=== PATIENT | male | born 1960 | race Caucasian/White ===

== ENCOUNTER → 2018-07-05 | Outpatient (CLI) | payer OTHER | LOC: GMAM 10:18 | PROVIDERS: ATTEND Family Medicine | DX: Z12.5 Encounter for screening for malignant neoplasm of prostate (principal) ==

== ENCOUNTER 2018-08-16 05:27 | Day surgery (SDC) | payer OTHER ==
[2018-08-16] MEDS ORDERED: LACTATED RINGERS 1,000 ML ONE (06:40)
[2018-08-16] MEDS ORDERED: PROPOFOL 200 MG/20 ML VIAL IV ONE (07:00)
[2018-08-16] MEDS ORDERED: LIDOCAINE 1% 10 ML VIAL INJ ONE (07:00)
[2018-08-16] MEDS ORDERED: MIDAZOLAM INJ 2 MG/2 ML VIAL ONE (07:35)
[2018-08-16] MEDS ORDERED: fentaNYL CITRATE INJ 50 MCG/ML AMP ONE (07:35)
--- NOTE | 2018-08-16 08:39 | OP ---
DATE OF PROCEDURE: 08/16/18 PREOPERATIVE DIAGNOSIS; 1. Age greater than 50 with no previous colonoscopy and desire for screening colonoscopy. POSTOPERATIVE DIAGNOSIS: 1. Polypectomy: Rectal polyp, 4 mm in size, removed with straight forceps biopsy. 2. Occasional sigmoid diverticula. PROCEDURE: 1. Colonoscopy with polypectomy. SURGEON: Sandor Mcgrath MD ANESTHESIA: Per Aung Flores CRNA. COMPLICATIONS: None apparent. ESTIMATED BLOOD LOSS: Less than 10 mL. TECHNIQUE: The patient was brought to the GI lab and laid in the left lateral decubitus position. Digital rectal exam was performed and found to be normal. The prostate was normal in size. Rectal tone was normal. The colonoscope was advanced gradually into the rectum and through to the cecum. The cecum was well visualized. The ileocecal valve was briefly cannulated. No polyps or masses were noted. The scope was withdrawn back through the ascending colon and into the transverse colon, which also appeared clear, back through to the descending colon and into the sigmoid colon, all of which appeared clear except for occasional diverticula in the sigmoid colon. The scope was withdrawn into the rectum where a 4 mm smooth hyperplastic appearing polyp was noted. This was removed with the straight forceps biopsy and felt to be adequately resected. Good hemostasis was noted. The scope was then retroflexed. The pectinate line was visualized and appeared normal. No other masses or polyps were noted. The scope was straightened and withdrawn slowly. The patient tolerated the procedure well. He will be discharged home when cleared from Anesthesia standpoint. DISPOSITION: The patient will be discharged when cleared from Anesthesia standpoint. Assuming that the polyp is a hyperplastic polyp, I recommend repeat colonoscopy in 10 years. If the polyp is adenomatous, we will recommend repeating colonoscopy in 5 years. #[id number];#[id number] [facility]
[2018-08-16 09:25] VITALS: BP 146/105; TEMP 96.9; O2SAT 98
== END 2018-08-16 09:05 | disposition home or self-care (01) ==
LOC: AMB 05:27
PROVIDERS: ATTEND Family Medicine
DX: Z12.11 Encounter for screening for malignant neoplasm of colon (principal); K62.1 Rectal polyp; K57.30 Diverticulosis of large intestine without perforation or abscess without bleeding
CPT/HCPCS: 00812; 45380; J2250; J3010; J3490; J7120

== ENCOUNTER → 2019-11-12 | Outpatient (CLI) | payer BC | LOC: GMAM 10:42 | PROVIDERS: ATTEND Family Medicine | DX: Z00.00 Encounter for general adult medical examination without abnormal findings (principal) ==